=== PATIENT | female | born 1980 | race Two or more races ===

== ENCOUNTER 2016-10-22 10:04 | Day surgery (SDC) | payer OTHER ==
[~2016-10-22] VITALS: Ht 165.1 cm; Wt 81.0 kg
[~2016-10-22 10:04] MED LIST: NONE PER PT
[2016-10-22 11:00] VITALS: BP 142/84
[2016-10-22] MEDS ORDERED: LIDOCAINE 0.5%-EPI 1:200K, 50ML ONE (11:03)
[2016-10-22] MEDS ORDERED: BUPIVACAINE/PF-EPI 0.5% 1:200K ONE (11:03)
[2016-10-22] MEDS ORDERED: LACTATED RINGERS 1,000 ML IV SCH (11:04)
[2016-10-22 11:09] LABS: HCG UR OBC PASS
[2016-10-22] MEDS ORDERED: MIDAZOLAM 1 MG/ML, 2ML ONE (11:37)
[2016-10-22] MEDS ORDERED: FENTANYL PF 100 MCG/2ML ONE (11:37)
[2016-10-22] MEDS ORDERED: PROMETHAZINE 25 MG/ML, 1ML IV PRN (12:00)
[2016-10-22] MEDS ORDERED: FENTANYL PF 100 MCG/2ML IV PRN (12:00)
[2016-10-22] MEDS ORDERED: HYDROmorphone 1 MG/ML, 1ML IV PRN (12:00)
[2016-10-22] MEDS ORDERED: OXYcodone 5 MG/5 ML ORAL.SOL UDC PO PRN (12:00)
[2016-10-22] MEDS ORDERED: LABETALOL 5MG/ML, 20ML IV PRN (12:00)
[2016-10-22] MEDS ORDERED: MEPERIDINE/PF 25MG/0.5ML IVPush PRN (12:00)
[2016-10-22] MEDS ORDERED: ONDANSETRON 2MG/ML, 2ML IVPush PRN (12:00)
[2016-10-22] MEDS ORDERED: ACETAMINOPHEN 325 MG TABLET PO PRN (12:00)
[2016-10-22] MEDS ORDERED: ROCURONIUM 10 MG/ML ONE (12:01)
[2016-10-22] MEDS ORDERED: PROPOFOL 10 MG/ML, 20ML ONE (12:01)
[2016-10-22] MEDS ORDERED: ONDANSETRON 2MG/ML, 2ML ONE (12:01)
[2016-10-22] MEDS ORDERED: DEXAMETHASONE 4 MG/ML, 1ML ONE (12:01)
[2016-10-22] MEDS ORDERED: KETOROLAC 30 MG/1 ML ONE (12:01)
== END 2016-10-22 14:20 | disposition home or self-care (01) ==
LOC: OUT 10:04
PROVIDERS: ATTEND Specialist
DX: N85.01 Benign endometrial hyperplasia (principal)
CPT/HCPCS: 58558; 81025; 88305; J1100; J1885; J2250; J2405; J2704; J3010; J7120